=== PATIENT | female | born 2000 | race Caucasian/White ===

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

== ENCOUNTER 2021-03-20 21:10 | Emergency (ER) | payer OTHER ==
[~2021-03-20] VITALS: Ht 167.6 cm; Wt 85.5 kg
[2021-03-20 21:10] VITALS: BP 124/79
[~2021-03-20 21:10] MED LIST changes: +CEPH250REC PO; +IBUP1TAB7 PO; +NAPR-849 PO; -NAPR250T4 PO
== END 2021-03-20 22:40 | disposition left against medical advice (07) ==
LOC: M ED 21:10
DX: Z53.21 Procedure and treatment not carried out due to patient leaving prior to being seen by health care provider (principal)

== ENCOUNTER 2021-09-27 09:33 | Observation (INO) | payer OTHER ==
[~2021-09-27] VITALS: Ht 167.6 cm; Wt 85.2 kg
[~2021-09-27 09:33] MED LIST changes: +ATOM40CA16 PO; +LIDOCAINE 1% MDV 20ML VIAL SQ PRN; +LR 1,000 ML IV ONE
[2021-09-27 10:28] LABS: HEMATOCRIT 44.6 % (36.0-47.0); HEMOGLOBIN 14.7 g/dl (12.0-15.5); MEAN CORPUSCULAR HEMOGLOBIN 26.7 pg (27.0-33.0); MEAN CORPUSCULAR VOLUME 81.1 fl (80.0-96.0); PLATELET COUNT, AUTOMATED 325 10^3/uL (150-450); WHITE BLOOD COUNT 7.9 10^3/uL (4.0-10.0)
[2021-09-27 10:50] LABS: BLOOD UREA NITROGEN 8 MG/DL (7-18); CALCIUM LEVEL 9.3 MG/DL (8.5-10.1); CARBON DIOXIDE LEVEL 28 MEQ/L (21-32); CHLORIDE LEVEL 107 MEQ/L (98-107); CREATININE FOR GFR 0.72 MG/DL (0.55-1.30); GLUCOSE, FASTING 81 MG/DL (70-100); POTASSIUM SERUM 4.1 MEQ/L (3.5-5.1); SODIUM LEVEL 138 MEQ/L (136-145)
[2021-09-27 11:40] LABS: HCG, SERUM QUALITATIVE NEGATIVE (NEGATIVE)
[2021-09-27] MEDS ORDERED: ONDANSETRON 4MG/2ML VIAL As Ordered ONE (14:04)
[2021-09-27] MEDS ORDERED: fentaNYL 250 MCG/5 ML INJECTION As Ordered ONE (14:04)
[2021-09-27] MEDS ORDERED: propofoL 200 MG/20 ML VIAL As Ordered ONE (14:04)
[2021-09-27] MEDS ORDERED: ROCURONIUM BROMIDE 50 MG/5 ML VIAL As Ordered ONE ×2 (14:04→15:42)
[2021-09-27] MEDS ORDERED: LIDOCAINE 2% 100MG/5ML SDV (FOR ANES.) As Ordered ONE (14:04)
[2021-09-27] MEDS ORDERED: dexameTHASONE 4 MG/ML 1ML VIAL (J1100 PER 1MG) As Ordered ONE (14:04)
[2021-09-27] MEDS ORDERED: MIDAZOLAM INJ 2MG/2ML VIAL (J2250 PER 1MG) As Ordered ONE (14:05)
[2021-09-27] MEDS ORDERED: GENTAMICIN SULF 80MG/2ML VIAL As Ordered ONE (14:19)
[2021-09-27] MEDS ORDERED: BUPIVACAINE LIPOSOME/PF 1.3% 20ML VIAL (13.3MG/ML)(EXPAREL) As Ordered ONE (14:19)
[2021-09-27] MEDS ORDERED: LACRILUBE (AKWA TEARS) OPHTH OINT 3.5 GM As Ordered ONE (14:20)
[2021-09-27] MEDS ORDERED: EPINEPHrine INJ 1 MG/ML 1ML AMP As Ordered ONE (14:55)
[2021-09-27] MEDS ORDERED: LIDOCAINE 1% MDV 20ML VIAL As Ordered ONE (14:55)
[2021-09-27] MEDS ORDERED: ceFAZolin 2 GM/D5W 50 ML IV BAG (J0690 PER 500MG) As Ordered ONE (14:58)
[2021-09-27] MEDS ORDERED: ACETAMINOPHEN 1000MG 100ML IV BTL (OFIRMEV) (J0131 PER 10MG) As Ordered ONE (15:43)
[2021-09-27] MEDS ORDERED: METOCLOPRAMIDE INJ 10MG/2ML VIAL (J2765 PER 1) As Ordered ONE (15:43)
[2021-09-27] MEDS ORDERED: SUGAMMADEX SODIUM 500 MG/5 ML VIAL (BRIDION) As Ordered ONE (15:43)
[2021-09-27] MEDS ORDERED: ACETAMINOPHEN TAB 650MG DOSE (2X325MG) PO PRN (18:00)
[2021-09-27] MEDS ORDERED: ONDANSETRON 4MG/2ML VIAL IV PRN ×2 (18:00→18:15)
[2021-09-27] MEDS ORDERED: PERCOCET 5MG/325MG TAB PO PRN (18:15)
[2021-09-27] MEDS ORDERED: METOCLOPRAMIDE INJ 10MG/2ML VIAL (J2765 PER 1) IV PRN (18:15)
[2021-09-27] MEDS ORDERED: LR 1,000 ML IV SCH (18:15)
[2021-09-27] MEDS: LR 1,000 ML IV SCH (18:54)
[2021-09-27] MEDS: fentaNYL 100 MCG/2 ML INJECTION IV PRN ×3 (18:54→19:25)
[2021-09-27 19:45] VITALS: BP 112/69
[2021-09-27 20:15] VITALS: BP 109/58
[2021-09-27 20:45] VITALS: BP 110/64
[2021-09-27 21:45] VITALS: BP 106/65
[2021-09-27 22:45] VITALS: BP 102/58
[2021-09-27] MEDS: ceFAZolin SOD 1 GM in D5W MINI-BAG PLUS 50 ML IV SCH (23:14)
[2021-09-27 23:45] VITALS: BP 102/58
[2021-09-28 02:00] VITALS: BP 110/64
[2021-09-28] MEDS: traMADol 50 MG TAB PO PRN ×2 (04:41→10:22)
[2021-09-28 06:00] VITALS: BP 118/70
[2021-09-28] MEDS: LR 1,000 ML IV SCH (07:20)
[2021-09-28] MEDS: ceFAZolin SOD 1 GM in D5W MINI-BAG PLUS 50 ML IV SCH (08:00)
[2021-09-28] MEDS ORDERED: TRAM50TA2 PO (10:27)
[2021-09-28] MEDS ORDERED: PERCOCET 5MG/325MG TAB PO PRN (11:25)
[2021-09-28] MEDS ORDERED: PERCOCET PO (14:23)
== END 2021-09-28 14:35 | disposition home or self-care (01) ==
LOC: M SDC 09:33 → M MS5PR 09:34
PROVIDERS: ADMIT Plastic Surgery Surgery of the Hand; ATTEND Plastic Surgery Surgery of the Hand
DX: N62 Hypertrophy of breast (principal); F90.9 Attention-deficit hyperactivity disorder, unspecified type; Z79.899 Other long term (current) drug therapy
CPT/HCPCS: 19318; 36415; 80048; 84703; 85027; 88305; C9290; J0131; J0171; J0690; J1100; J1580; J2250; J2405; J2765; J3010